=== PATIENT | female | born 1970 | race Caucasian/White ===

== ENCOUNTER 2023-04-22 06:20 | Day surgery (SDC) | payer OTHER ==
[2023-04-22] MEDS ORDERED: POVIDONE-IODINE 118 ML BOTT TOP ONE ×2 (14:05→15:15)
== END 2023-04-22 21:00 | disposition home or self-care (01) ==
LOC: CIR.AMB 06:20
PROVIDERS: ATTEND Obstetrics & Gynecology
DX: N93.8 Other specified abnormal uterine and vaginal bleeding (principal); Z91.013 Allergy to seafood; Z20.822 Contact with and (suspected) exposure to COVID-19